=== PATIENT | male | born 1985 | race Caucasian/White ===

== ENCOUNTER → 2020-12-03 | Outpatient (CLI) | payer OTHER | LOC: KOH-I 11:00 | DX: J32.9 Chronic sinusitis, unspecified (principal); J34.2 Deviated nasal septum; J34.89 Other specified disorders of nose and nasal sinuses | CPT/HCPCS: 70486 ==

== ENCOUNTER → 2020-12-30 | Day surgery (SDC) | payer OTHER | END | disposition home or self-care (01) | LOC: OR 06:40 | DX: J32.9 Chronic sinusitis, unspecified (principal); J34.2 Deviated nasal septum; J34.3 Hypertrophy of nasal turbinates; R09.82 Postnasal drip; E66.01 Morbid (severe) obesity due to excess calories; Z79.899 Other long term (current) drug therapy | CPT/HCPCS: C1726; J0171; J0360; J0690; J1100; J2001; J2250; J2704; J2710; J3010; J7030; J7120 ==